=== PATIENT | female | born 1980 | race Caucasian/White ===

== ENCOUNTER 2016-07-21 18:48 | Emergency (ER) | payer MEDICAID ==
[~2016-07-21] VITALS: Ht 165.1 cm; Wt 71.3 kg
[~2016-07-21 18:48] MED LIST: CITA10TA8 PO; HYDR-3342 PO
[2016-07-21 18:55] VITALS: BP 153/96
== END 2016-07-21 19:17 | disposition home or self-care (01) ==
LOC: ED 19:11
DX: K08.89 Other specified disorders of teeth and supporting structures (principal); Z90.49 Acquired absence of other specified parts of digestive tract
CPT/HCPCS: 99283

== ENCOUNTER 2016-12-18 13:42 | Emergency (ER) | payer MEDICAID ==
[~2016-12-18] VITALS: Ht 165.1 cm; Wt 68.0 kg
[2016-12-18] MEDS ORDERED: HYDROmorphone 1 MG/ML, 1ML IM ONE (13:49)
[2016-12-18] MEDS ORDERED: HYDROmorphone 1 MG/ML, 1ML ONE (13:58)
[2016-12-18] MEDS ORDERED: PLEASE ENTER HEIGHT AND WEIGHT MC SCH (14:00)
[2016-12-18 15:35] VITALS: BP 86/37
== END 2016-12-18 15:36 | disposition home or self-care (01) ==
LOC: ED 13:59
DX: S39.012A Strain of muscle, fascia and tendon of lower back, initial encounter (principal); F15.10 Other stimulant abuse, uncomplicated; W01.0XXA Fall on same level from slipping, tripping and stumbling without subsequent striking against object, initial encounter; Y93.89 Activity, other specified; Y92.009 Unspecified place in unspecified non-institutional (private) residence as the place of occurrence of the external cause; Y99.9 Unspecified external cause status
CPT/HCPCS: 72110; 73502; 96372; 99284; J1170